=== PATIENT | male | born 1980 | race Caucasian/White ===

== ENCOUNTER 2019-07-21 10:53 | Emergency (ER) | payer SELFPAY ==
[2019-07-21 10:54] VITALS: BP 164/104; PULSE 84; RESP 16; TEMP 36.6; O2SAT 99; BMI 22.4
--- NOTE | 2019-07-21 11:18 | ED_ITS ---
Entered by Cynthia Kumar, acting as scribe for Radha Farrell Mika HPI - Male Genitourinary General: Chief complaint: Urogenital-Male Stated complaint: blood in urine Time Seen by Provider: 07/21/19 11:18 Source: patient, family and RN notes reviewed Mode of arrival: ambulatory Limitations: no limitations History of Present Illness: HPI Narrative: 38 yo male presents to ED with complaints of R sided abdominal pain. He said it began a couple of days ago with R testicular pain. The pain began radiating to the R flank and began in the R side abdomen today. He said he has hematuria. He denies fever, nausea and vomiting. He states he has had no previous surgeries. MD Complaint: testicle pain, testicle swelling and other (hematuria) Onset (ago): day(s) (2) Duration: constant and progressively worsening Location: right testicle, right flank and abdomen (R side) Radiation: right flank and abdomen (R side) Severity: severe Quality: aching, sharp and stabbing Relieving factors: none Exacerbating factors: movement Context: other (unknown) Associated symptoms: Reports hematuria; Deny nausea or vomiting Related Data: Sexually active: Yes Review of Systems General: Reports: other (negative unless marked) Const: Denies: fever, chills, body aches, fatigue, malaise or diaphoresis Eyes: Denies: change in vision or blurry vision ENMT: Denies: throat pain, painful swallowing, hoarseness, ear pain, ear discharge, Change in hearing or nasal discharge Card: Denies: chest pain, palpitations, irregular heart rhythm, syncope, pre- syncope, shortness of breath on exertion or shortness of breath when lying down Resp: Denies: shortness of breath, productive cough, non-productive cough, wheezing, coughing up blood or chest congestion GI: Denies: nausea, vomiting, vomiting blood, coffee grounds in vomit, diarrhea, constipation, cramping, blood in stool or black tarry stool : Reports: blood in urine Musc: Denies: neck pain, back pain, extremity pain, extremity swelling, joint pain, joint swelling, joint warmth or joint stiffness Skin/Breast: Denies: rash, skin tenderness or yellow skin Neuro: Denies: headache, numbness in extremities, weakness in extremities, changes in sensation, lack of coordination, difficulty walking, dizziness, vertigo or confusion Endo: Denies: excessive thirst, tired all the time, cold intolerance, excessive sweating, flushing or hot flashes Draien/Lymph: Denies: easy bruising, easy bleeding, petechiae or enlarged lymph nodes All/Imm: Denies: hives, throat swelling, tongue swelling, facial swelling or acute wheezing PFSH ED PFSH: Social History Smoking and tobacco status: current every day smoker Physical Exam Const: COMMON NORMALS: no apparent distress, oriented x3, no limitations, healthy appearing and well nourished EXAM LIMITATIONS: no altered mental status GENERAL APPEARANCE: cooperative, well kempt and well developed ORIENTATION/CONSCIOUSNESS: Yes awake HENMT: COMMON NORMALS: normocephalic, head/scalp atraumatic, hearing grossly normal bilaterally, external ears normal, EAC's normal, external nose normal and moist oral mucous membranes HEAD & SCALP: normocephalic and atraumatic FACE & SINUS: normal facial exam and face symmetric NOSE: external nose normal EXTERNAL EAR: Yes external ears normal EXTERNAL AUDITORY CANAL: EAC's normal Eye: GENERAL EYE: normal appearance of both eyes Neck/C-Spine: COMMON NORMALS: full ROM, no lymphadenopathy, supple, no meningeal signs and no JVD CERVICAL SPINE: Yes cervical ROM normal Resp: COMMON NORMALS: normal respiratory effort, no retractions, no use of accessory muscles and clear to auscultation bilaterally EFFORT & INSPECTION: Yes able to speak in complete sentences AUSCULTATION: clear to auscultation bilaterally Cardio: COMMON NORMALS: no JVD, regular rate, regular rhythm, S1 normal heart sound, S2 normal heart sound, no gallops, no clicks, no murmurs and no rub JUGULAR VENOUS DISTENTION: no JVD RATE: regular rate RHYTHM: regular rhyth m HEART SOUNDS: S1 normal and S2 normal GI: COMMON NORMALS: soft to palpation, no hepatosplenomegaly and no masses INSPECTION: Yes normal to inspection PALPATION: Yes soft and Yes no hepatosplenomegaly Back/Pelvis: COMMON NORMALS: thoracic and lumbar spine normal to inspection, no thoracic nor lumbar tenderness and thoraco-lumbar ROM normal Extremity: COMMON NORMALS: normal to inspection, full ROM, normal capillary refill, no joint enlargement and no calf tenderness Neuro: COMMON NORMALS: oriented x3, CN's II-XII intact bilaterally and moves all extremities MENINGEAL SIGNS: Yes no meningeal signs Psych: COMMON NORMALS: mental status grossly normal, thought process normal, cooperative, affect normal, speech normal and activity/motor behavior normal APPEARANCE: Yes well kempt SPEECH: Yes normal speech THOUGHT PROCESS: normal thought process Skin: COMMON NORMALS: no rashes or lesions noted, skin turgor normal, no jaundice, no petechiae and no mottling GENERAL SKIN EXAM: no rashes or lesions noted and turgor normal Course Vital Signs: Vital signs: Vital Signs Temperature 97.9 F 07/21/19 10:54 Pulse Rate 84 07/21/19 10:54 Respiratory Rate 18 07/21/19 11:33 Blood Pressure 164/104 07/21/19 10:54 Pulse Oximetry 99 07/21/19 10:54 MDM - Male MDM Narrative: Medical decision making narrative: Patient presents with testicle pain and an ultrasound consistent with epididymitis. We will go ahead and place him on Levaquin. He was empirically treated for STDs here. He agrees to return should his symptoms change or worsen. Lab Data: Attestation: I reviewed the patient's lab results. Labs: Lab Results 07/21/19 07/21/19 07/21/19 Range/Units 11:27 11:27 11:27 WBC 13.1 H (4.0-10.0) 10^3/ uL RBC 4.68 (4.1-5.3) 10^6/u L Hgb 15.6 (11.7-16.6) g/dL Hct 46.4 (42.0-52.0) % MCV 99.1 H (80-94) fL MCH 33.3 (28.0-34.0) pg MCHC 33.6 (30.0-36.0) g/dL RDW 12.1 (12.1-15.1) % Plt Count 249 (130-400) 10^3/c mm MPV 10.2 (7.4-10.4) fL Neut % (Auto) 71.1 % Lymph % (Auto) 18.2 % Park % (Auto) 9.3 % Eos % (Auto) 0.7 % Baso % (Auto) 0.3 % Neut # (Auto) 9.3 H (1.8-7.7) 10^3/u L Lymph # (Auto) 2.4 (0.8-4.8) 10^3/u L Park # (Auto) 1.2 H (0.2-0.9) 10^3/u L Eos # (Auto) 0.1 (0.0-0.8) 10^3/u L Baso # (Auto) 0.0 (0.0-0.1) 10^3/u L Nucleated RBC % (a uto) 0 % Nucleated RBCs # 0.0 /100WBC PT 13.00 (10.5-13.3) SECO NDS INR 0.98 (0.8-1.2) Sodium 135 L (136-145) mmol/L Potassium 4.3 (3.5-5.1) mmol/L Chloride 97 L (98-107) mmol/L Carbon Dioxide 27 (22-29) mmol/L Anion Gap 15.3 (5-19) BUN 9 (6-20) mg/dL Creatinine 0.8 (0.7-1.2) mg/dL GFR Calculation 108.8 (90-130) mL/min Glucose 119 H (65-115) mg/dL Calculated Osmolal ity 277 L (285-295) mOsm/k g Calcium 9.7 (8.5-10.5) mg/dL Total Bilirubin 0.6 (0.15-1.2) mg/dL AST 13 (0-40) U/L ALT 7 (0-41) U/L Alkaline Phosphata se 77 (40-130) IU/L Total Protein 7.2 (6.6-8.7) g/dL Albumin 4.2 (3.5-5.2) g/dL Globulin 3.0 (1.3-4.6) g/dL Urine Color (Yellow) Urine Appearance (CLEAR) Urine pH (5-7) Ur Specific Gravit y (1.005-1.030) Urine Protein (Negative) Urine Glucose (UA) (Normal) Urine Ketones (Negative) Urine Blood (Negative) Urine Nitrate (Negative) Urine Bilirubin (NEGATIVE) Urine Urobilinogen (Negative) mg/dL Ur Leukocyte Dionne ase (Negative) Urine RBC (0-2) /hpf Urine WBC (0-5) /hpf Ur Squamous Epith Cells (0-5) Urine Bacteria (NONE) 03/24/20 Range/Units 11:27 WBC (4.0-10.0) 10^3/ uL RBC (4.1-5.3) 10^6/u L Hgb (11.7-16.6) g/dL Hct (42.0-52.0) % MCV (80-94) fL MCH (28.0-34.0) pg MCHC (30.0-36.0) g/dL RDW (12.1-15.1) % Plt Count (130-400) 10^3/c mm MPV (7.4-10.4) fL Neut % (Auto) % Lymph % (Auto) % Park % (Auto) % Eos % (Auto) % Baso % (Auto) % Neut # (Auto) (1.8-7.7) 10^3/u L Lymph # (Auto) (0.8-4.8) 10^3/u L Park # (Auto) (0.2-0.9) 10^3/u L Eos # (Auto) (0.0-0.8) 10^3/u L Baso # (Auto) (0.0-0.1) 10^3/u L Nucleated RBC % (a uto) % Nucleated RBCs # /100WBC PT (10.5-13.3) SECO NDS INR (0.8-1.2) Sodium (136-145) mmol/L Potassium (3.5-5.1) mmol/L Chloride (98-107) mmol/L Carbon Dioxide (22-29) mmol/L Anion Gap (5-19) BUN (6-20) mg/dL Creatinine (0.7-1.2) mg/dL GFR Calculation (90-130) mL/min Glucose (65-115) mg/dL Calculated Osmolal ity (285-295) mOsm/k g Calcium (8.5-10.5) mg/dL Total Bilirubin (0.15-1.2) mg/dL AST (0-40) U/L ALT (0-41) U/L Alkaline Phosphata se (40-130) IU/L Total Protein (6.6-8.7) g/dL Albumin (3.5-5.2) g/dL Globulin (1.3-4.6) g/dL Urine Color Yellow (Yellow) Urine Appearance Clear (CLEAR) Urine pH 5.0 (5-7) Ur Specific Gravit y 1.015 (1.005-1.030) Urine Protein Neg (Negative) Urine Glucose (UA) Norm (Normal) Urine Ketones Negative (Negative) Urine Blood Neg (Negative) Urine Nitrate Negative (Negative) Urine Bilirubin Neg (NEGATIVE) Urine Urobilinogen Norm (Negative) mg/dL Ur Leukocyte Dionne ase 1+ H (Negative) Urine RBC None (0-2) /hpf Urine WBC 40-55 H (0-5) /hpf Ur Squamous Epith Cells 0-4 H (0-5) Urine Bacteria 2+ H (NONE) Imaging Data: US: Radiologist's impression: [address] [address] Ultrasound Report Signed Patient: Harjeet Crowe JR Unit #: [id number] : 1980 Age/Sex: 38 / M ADM Date: 07/21/19 Loc: ER Room/Bed: Attending Dr: Ordering Provider/Ordering MD: Radha Farrell DO Date of Service: 07/21/19 Procedure(s): US scrotum [id number] Accession Number(s): [id number] Report Number: [id number] WS: [id number] Scrotal and testicular ultrasound, 07/21/2019 Clinical Data: RT. SIDED PAIN Comparison: None. Findings: The right testes measures 3.4 cm x 2.6 cm x 2.5 cm. Right epididymis shows increased flow and increased size consistent with epididymitis The left testes measures 3.4 cm x 2.1 cm x 2.2 cm. The left epididymis measures 1.26 cm and shows no increased flow or evidence of epididymitis. There is normal bilateral blood flow to the testes with no evidence of orchitis or torsion. No masses or abnormal calcifications are noted. US/US scrotum [id number] Impression: Right epididymitis. Dictated By: Maryam Viera MD Signed By: Maryam Viera MD Signed Date/Time: 07/21/19 1205 DD/ 1156 CT Abd/Pel: Radiologist's impression: [facility] [address] [place] [address] CT Scan Report Signed Patient: Harjeet Crowe JR Unit #: [id number] : 1980 Age/Sex: 38 / M ADM Date: 07/21/19 Loc: ER Room/Bed: Attending Dr: Ordering Provider/Ordering MD: Radha Farrell DO Date of Service: 07/21/19 Procedure(s): CT kidney stone [id number] Accession Number(s): [id number] Report Number: [id number] WS: [id number] CT ABDOMEN PELVIS TECHNIQUE: Noncontrast CT of the abdomen and pelvis with coronal and sagittal reformatted images. CLINICAL INFORMATION: Flank/Abdominal Pain COMPARISON: None. DLP: 546.[address] scans at [facility] use at least one of these dose optimization techniques: automated exposure control; mA and/or kV adjustment per patient size (includes targeted exams where dose is matched to clinical indication); or iterative reconstruction. FINDINGS: Noncontrast liver is normal. Normal gallbladder. Noncontrast spleen is normal. Normal GE junction. Lung bases are well aerated. Adrenal glands are normal. No obstructing ureteral calculi. No hydronephrosis. No evidence of acute appendicitis. Normal caliber abdominal aorta. No abdominal lymphadenopathy. Fecal retention in the transverse colon. No evidence of small or large bowel obstruction. No pelvic or inguinal lymphadenopathy. Prostate calcification. Disc space narrowing L5-S1. Notified Radha Farrell at 07/21/2019 12:[address]/CT kidney stone [id number] IMPRESSION: 1. No obstructing renal or ureteral calculi. No hydronephrosis. 2. Appendix is not visualized but no evidence of acute appendicitis. 3. No evidence of small or large bowel obstruction. Mild constipation transverse colon. 4. Normal caliber abdominal aorta. Dictated By: Dinesh Lee MD Signed By: Dinesh Lee MD Signed Date/Time: 07/21/19 1221 DD/ 1214 Discharge Plan Discharge Patient Disposition: Home, Self-Care Clinical Impression: Epididymitis Condition: Stable Prescriptions: New Levaquin 750 mg tablet 750 mg PO DAILY 14 Days RF: 0 [place] 5-325 mg tablet 1 tab PO Q8H PRN (Reason: pain) Qty: 14 RF: 0 Zofran 4 mg tablet 4 mg PO Q8H PRN (Reason: nausea and vomiting) 4 Days RF: 0 Discharge Orders: Discharge Order (Routine); Ordered 07/21/19 Ordered By: Radha Farrell Referrals: Huy Duvall MD [Physician] - 1-3 days Discharge Diet: Advance as tolerated Discharge Activity: Increase activity as tolerated Patient Instructions: Epididymitis (ED) Activity Restrictions/Additional Instructions: Please return to the ER immediately for any of the signs or symptoms listed on your discharge instruction sheets, worsening/changing of your symptoms, you are not getting better as quickly as expected, or for ANY other cause or concerns. Coding Level of Care Code ED Claim Processor for Chg Fwd Exam Comprehensive The documentation recorded by the José paul Valerie R, accurately reflects the service I personally performed and the decisions made by , Radha Farrell
--- NOTE | 2019-07-21 11:22 | US_ITS ---
WS: [id number] Scrotal and testicular ultrasound, 07/21/2019 Clinical Data: RT. SIDED PAIN Comparison: None. Findings: The right testes measures 3.4 cm x 2.6 cm x 2.5 cm. Right epididymis shows increased flow and increased size consistent with epididymitis The left testes measures 3.4 cm x 2.1 cm x 2.2 cm. The left epididymis measures 1.26 cm and shows no increased flow or evidence of epididymitis. There is normal bilateral blood flow to the testes with no evidence of orchitis or torsion. No masses or abnormal calcifications are noted. US/ scrotum [id number] Impression: Right epididymitis.
--- NOTE | 2019-07-21 11:23 | CT_ITS ---
WS: [id number] CT ABDOMEN PELVIS TECHNIQUE: Noncontrast CT of the abdomen and pelvis with coronal and sagittal reformatted images. CLINICAL INFORMATION: Flank/Abdominal Pain COMPARISON: None. DLP: 546.[address] scans at [facility] use at least one of these dose optimization techniques: automat ed exposure control; mA and/or kV adjustment per patient size (includes targeted exams where dose is matched to clinical indication); or iterative reconstruction. FINDINGS: Noncontrast liver is normal. Normal gallbladder. Noncontrast spleen is normal. Normal GE junction. Rosa ng bases are well aerated. Adrenal glands are normal. No obstructing ureteral calculi. No hydronephrosis. No evidence of acute a ppendicitis. Normal caliber abdominal aorta. No abdominal lymphadenopathy. Fecal retention in the transverse colon. No evidence of small or large bowel obstruction. No pelvic o r inguinal lymphadenopathy. Prostate calcification. Disc space narrowing L5-S1. Notified Radha Farrell at 07/21/2019 12:[address]/CT kidney stone [id number] IMPRESSION: 1. No obstructing renal or ureteral calculi. No hydronephrosis. 2. Appendix is not visualized but no evidence of acute appendicitis. 3. No evidence of small or large bowel obstruction. Mild constipation transver se colon. 4. Normal caliber abdominal aorta.
[2019-07-21] MEDS: sodium chloride 0.9% 1,000 ML 100 ML IV (11:31)
[2019-07-21] MEDS: ondansetron 2 mg/ML SDV 2 mL 4 MG IVP (11:32)
[2019-07-21 11:33] VITALS: RESP 18
[2019-07-21] MEDS: morphine 4 mg/mL SDV 1 mL IVP (11:33)
[2019-07-21 11:57] LABS: Bilirubin Urine Neg (NEGATIVE); Blood Urine Neg (Negative); Glucose Urine UA Norm (Normal); Ketones Urine Negative (Negative); Leukocyte Esterase Urine 1+ (Negative); Nitrate Urine Negative (Negative); Protein Urine Neg (Negative); Specific Gravity, Urine 1.015 (1.005-1.030); Urine Appearance Clear (CLEAR); Urine Color Yellow (Yellow); Urobilinogen Urine Norm (Negative)
[2019-07-21 12:06] LABS: Basophils % 0.3 %; Eosinophils # 0.1 10^3/uL (0.0-0.8); Eosinophils % 0.7 %; Hematocrit 46.4 % (42.0-52.0); Hemoglobin 15.6 g/dL (11.7-16.6); Lymphocytes # 2.4 10^3/uL (0.8-4.8); Lymphocytes % 18.2 %; Mean Corpuscular HGB Conc 33.6 g/dL (30.0-36.0); Mean Corpuscular Hemoglobin 33.3 pg (28.0-34.0); Mean Corpuscular Volume 99.1 fL (80-94); Mean Platelet Volume 10.2 fL (7.4-10.4); Monocytes # 1.2 10^3/uL (0.2-0.9); Monocytes % 9.3 %; Neutrophils # 9.3 10^3/uL (1.8-7.7); Neutrophils % 71.1 %; Nucleated Red Blood Cells % 0 %; Platelet Count 249 10^3/cmm (130-400); Red Blood Count 4.68 10^6/uL (4.1-5.3); Red Cell Distribution Width 12.1 % (12.1-15.1); White Blood Count 13.1 10^3/uL (4.0-10.0)
[2019-07-21] MEDS: azithromycin 250 mg Tablet 1000 MG PO (12:07)
[2019-07-21] MEDS: cefTRIAXone 1,000 MG in sodium chloride 0.9% (plus) 50 ML 100 MG IV (12:08)
[2019-07-21 12:21] LABS: Squamous Epithelial Cell Urine 0-4 (0-5); WBC Urine 40-55 /hpf (0-5)
[2019-07-21 12:22] LABS: Add Urine Culture? Yes; Bacteria Urine 2+
[2019-07-21 12:25] LABS: Alanine Aminotransferase 7 U/L (0-41); Albumin Level 4.2 g/dL (3.5-5.2); Alkaline Phosphatase 77 IU/L (40-130); Anion Gap 15.3 (5-19); Aspartate Amino Transferase 13 U/L (0-40); Blood Urea Nitrogen 9 mg/dL (6-20); Calcium 9.7 mg/dL (8.5-10.5); Carbon Dioxide 27 mmol/L (22-29); Chloride 97 mmol/L (98-107); Glomerular Filtration Rate 108.8 mL/min (90-130); Glucose 119 mg/dL (65-115); Osmolality Calculated 277 mOsm/kg (285-295); Potassium 4.3 mmol/L (3.5-5.1); Sodium 135 mmol/L (136-145); Total Bilirubin 0.6 mg/dL (0.15-1.2); Total Protein 7.2 g/dL (6.6-8.7)
[2019-07-21 12:28] LABS: INR 0.98 (0.8-1.2)
[2019-07-21] MEDS: levoFLOXacin 750 mg Tablet PO (12:40)
[2019-07-21 12:46] VITALS: BP 151/106; PULSE 80; O2SAT 95
== END 2019-07-21 12:46 | disposition home or self-care (01) ==
LOC: ER 12:50
PROVIDERS: Emergency Provider Emergency Medicine
DX: N45.1 Epididymitis (principal); F17.200 Nicotine dependence, unspecified, uncomplicated
CPT/HCPCS: 12345; 36415; 74176; 76870; 80053; 81001; 85025; 85610; 87077; 87086; 87186; 87491; 87591; 96360; 96365; 96375; 99283; 99284; J0696; J2270; J2405; J7030; Q0144

== ENCOUNTER 2019-10-24 21:15 | Emergency (ER) | payer SELFPAY ==
[2019-10-24 21:26] VITALS: BP 138/93; PULSE 94; RESP 16; TEMP 36.9; O2SAT 95; BMI 21.2
--- NOTE | 2019-10-24 22:31 | PC.NURSE ---
went to waiting room to call pt back and he could not be found.
== END 2019-10-24 22:35 ==
LOC: ER 21:36
PROVIDERS: Emergency Provider Nurse Practitioner Family
DX: Z53.21 Procedure and treatment not carried out due to patient leaving prior to being seen by health care provider (principal)
CPT/HCPCS: 99281

== ENCOUNTER 2019-10-25 01:32 | Emergency (ER) | payer SELFPAY ==
[2019-10-25 01:42] VITALS: BP 128/86; PULSE 96; RESP 16; TEMP 36.8; O2SAT 96; BMI 22.4
--- NOTE | 2019-10-25 02:02 | XRR_ITS ---
PROCEDURE INFORMATION: Exam: XR Left Hand Exam date and time: 10/25/2019 2:03 AM Age: 39 years old Clinical indication: Injury or trauma; Injury history: PT punched wall; Initial encounter; Blunt trauma (contusions or hematomas; Hand; Left; Additional info: Possible FX TECHNIQUE: Imaging protocol: XR Left hand. Views: 3 or more views. COMPARISON: No relevant prior studies available. FINDINGS: Bones/joints: There is an oblique mildly comminuted dorsally displaced fracture dislocation of the 4th metacarpal of the left hand. An adjacent dorsal dislocation of the 5th metacarpal is seen as well. Soft tissues: Normal. XR/XR hand LT min 3V* [id number] IMPRESSION: 1. Acute comminuted fracture dorsal carpometacarpal dislocation of the 4th metacarpal of the left hand . 2. Acute dorsal dislocation of the 5th carpometacarpal joint
[2019-10-25 04:18] VITALS: RESP 18; O2SAT 98
[2019-10-25] MEDS: fentaNYL 50 mcg/mL INJ 2mL 200 MCG IVP (04:18)
[2019-10-25] MEDS: ondansetron 2 mg/ML SDV 2 mL 4 MG IVP (04:18)
[2019-10-25] MEDS: lidocaine 1% INJ 20 mL INJECTION (04:19)
[2019-10-25 04:43] VITALS: BP 159/109; PULSE 92; RESP 18; O2SAT 96
--- NOTE | 2019-10-25 04:45 | XRR_ITS ---
PROCEDURE INFORMATION: Exam: XR Left Hand Exam date and time: 10/25/2019 4:45 AM Age: 39 years old Clinical indication: Injury or trauma; Injury history: Post reduction; Initial encounter; Blunt trauma (contusions or hematomas; Hand; Left; Additional info: Post reduc TECHNIQUE: Imaging protocol: XR Left hand. Views: 1 or 2 views. COMPARISON: CR (UP EXM, ) 10/25/2019 2:21 AM FINDINGS: Bones/joints: Status post closed reduction of a dorsal dislocation and comminuted fracture at the base of the 4th metacarpal of the left hand. There is residual dorsal dislocation . There is continued dorsal dislocation of the 5th carpometacarpal joint. Soft tissues: Normal. XR/XR hand LT 2V [id number] IMPRESSION: There is closed reduction of a comminuted fracture at the base of the 4th metacarpal of the left hand. There is residual dorsal dislocation of the 4th and 5th carpometacarpal joints.
--- NOTE | 2019-10-25 05:14 | W.ED.EXTPRO ---
HPI - Extremity Problem General: Chief complaint: Extremity Injury, Upper Stated complaint: left hand injury Time Seen by Provider: 10/25/19 03:24 History of Present Illness: HPI Narrative: 39-year-old male who punched a wall. MD Complaint: extremity pain Onset (ago): hour(s) Pain Consistency: constant Location: left, upper extremity and other (hand) Quality: stabbing and constant Radiation: none Relieving factors: nothing Exacerbating factors: nothing Associated symptoms: Reports no associated symptoms; Deny chest pain, fever(s) or rash Review of Systems Const: Denies: fever(s) or chills Card: Denies: chest pain, palpitations or swelling of feet/ankles Resp: Denies: dyspnea or wheezing GI: Denies: nausea or vomiting : Denies: difficulty urinating Musc: Denies: neck pain Skin/Breast: Denies: rash Neuro: Denies: headache(s), dizziness or vertigo Psych: Denies: anxiety PFSH ED PFSH: Social History Smoking and tobacco status: current every day smoker Physical Exam Const: COMMON NORMALS: no acute distress, patient oriented x3 and alert GENERAL APPEARANCE: cooperative HENMT: COMMON NORMALS: normocephalic HEAD & SCALP: normocephalic Chest: COMMONS NORMALS: normal inspection of the chest CHEST: Yes Symmetrical chest wall rise Resp: COMMON NORMALS: normal respiratory effort and No use of accessory muscles Extremity: NARRATIVE EXTREMITY EXAM: Examination of the left hand reveals tenderness and swelling to the dorsum of the ulnar sided CMC's. There is deformity dorsally as well. Does not appear to be rotational deformity. Neuro: COMMON NORMALS: patient oriented x3 SENSORIUM/ORIENTATION: Yes alert Procedures Orthopedic Fracture Reduction Fracture #1: Side: left Fracture Reduction Location: metacarpal Analgesia: procedural sedation (Fentanyl 200 mcg IV) and hematoma block Technique: direct manipulation and traction/counter-traction Post Reduction X-rays Demonstrate: other (Improvement in fracture alignment. Dorsal dislocation of the fourth and fifth CMC's remain) Post-reduction neuro exam: intact Post-reduction vascular exam: intact Splint Applied: Yes Patient Tolerated Procedure: well Course Vital Signs: Vital signs: Vital Signs Temperature 98.2 F 10/25/19 01:42 Pulse Rate 85 10/25/19 05:45 Respiratory Rate 18 10/25/19 05:45 Blood Pressure 151/106 10/25/19 05:45 Pulse Oximetry 96 10/25/19 05:45 MDM - Extremity (Nontraumatic) MDM Narrative: Medical decision making narrative: 39-year-old male with a dorsally displaced/dislocated fourth metacarpal base fracture. There is dislocation of the fifth CMC. Attempt at reduction was made. There is improved alignment in the fracture of the base of the fourth, but continued dislocation of the fourth and fifth bases. This is despite significant pressure and traction during the attempted reduction. The patient will most likely need reduction in the OR as an outpatient. Referral is been placed to orthopedic surgery to see him as an outpatient for this. Spoke with Dr. Ma regarding this case. He states he would be comfortable doing the outpatient reduction, but he is going off call at the beginning of the week. If the orthopedic surgeon on is not comfortable, he will need urgent hand surgery referral. Discharge Plan Discharge Patient Disposition: Home, Self-Care Clinical Impression: Fracture of hand Qualifiers: Encounter type: initial encounter Fracture type: closed Laterality: left Qualified Code(s): S62.92XA - Unspecified fracture of left wrist and hand, initial encounter for closed fracture Carpometacarpal joint dislocation Qualifiers: Encounter type: initial encounter Laterality: left Qualified Code(s): S63.055A - Dislocation of other carpometacarpal joint of left hand, initial encounter Condition: Stable Prescriptions: New Ray 7.5-325 mg tablet 1 tab PO Q6H PRN (Reason: pain) Qty: 20 RF: 0 No Action Ray 5-325 mg tablet 1 tab PO Q8H PRN (Reason: pain) Qty: 14 RF: 0 Discharge Orders: Discharge Order (Routine); Ordered 10/25/19 Ordered By: Elmer Moon Discharge Diet: Usual diet Discharge Activity: Limit activity as instructed Patient Instructions: Hand Fracture (ED) Activity Restrictions/Additional Instructions: A referral is been placed for orthopedics for you. Stay in splint until seen by them. If you do not get a call by Saturday, call the ER case maker at [phone]. Return for excruciating pain despite treatment, loss of sensation, other concerning symptoms. Ice frequently Discharge Date/Time: 10/25/19 05:47 Coding Level of Care Code ED Strike Out Machine Operator for Chg Fwd Exam Expanded Problem Focused
[2019-10-25 05:45] VITALS: BP 151/106; PULSE 85; RESP 18; O2SAT 96
--- NOTE | 2019-10-26 12:43 | DCPLANNER ---
patient registration manager had message to schedule a follow up appointment for patient with ortho. patient registration manager called the ortho clinic, spoke with Pat, gave clinic patients information. Pat from ortho called medical case manager back and stated that after patients information was reviewed, patient will need to follow up with a hand specialist. patient registration manager called patient and asked patient which clinic patient would like to be referred to. Patient stated that he would like to be referred to the [facility], medical case manager faxed patients information to the clinic, will call for appointment information.
--- NOTE | 2019-10-28 12:22 | DCPLANNER ---
fitness and wellness manager called [facility], to confirm if an appointment had been scheduled. fitness and wellness manager was told that the patients information is being reviewed with the physicians.
--- NOTE | 2019-10-29 12:12 | DCPLANNER ---
Patient had a follow up appointment for patient with Ryan Matt on 10.27.19, patient did attend the appointment.
== END 2019-10-25 05:47 | disposition home or self-care (01) ==
PROVIDERS: Emergency Provider Emergency Medicine
DX: S62.315A Displaced fracture of base of fourth metacarpal bone, left hand, initial encounter for closed fracture (principal); S62.317A Displaced fracture of base of fifth metacarpal bone, left hand, initial encounter for closed fracture; S63.055A Dislocation of other carpometacarpal joint of left hand, initial encounter; W22.09XA Striking against other stationary object, initial encounter; F17.210 Nicotine dependence, cigarettes, uncomplicated
CPT/HCPCS: 12345; 26605; 73120; 73130; 96374; 96375; 99282; 99284; J2001; J2405; J3010; J3490

== ENCOUNTER 2019-12-13 16:19 | Emergency (ER) | payer SELFPAY ==
[2019-12-13 16:23] VITALS: BP 137/106; PULSE 100; RESP 16; TEMP 36.7; O2SAT 96; BMI 23.1
--- NOTE | 2019-12-13 16:24 | W.ED.UPPEXIN ---
HPI - Extremity Injury (Upper) General: Chief Complaint: Extremity Injury, Upper Stated Complaint: hand/arm pain post surgery Time Seen by Provider: 12/13/19 16:21 History of Present Illness: HPI narrative: 39-year-old male comes in complaining of left hand pain began over the last 24 hours he has had a hand fracture back on October 23. He was seen the following day and sent to [facility] he underwent hand surgery open reduction internal fixation is multiple Ary wires in place is complaining of the being able to palpate 1 is concerned may be poking out. He says had increased pain as well. MD complaint: injury to: left Onset (ago): week(s) Other Extremity Injury: Left: hand Handedness: right Relieving factors: none Exacerbating factors: none Context: direct blow Associated symptoms: Reports no associated symptoms Treatments prior to arrival: bandage Review of Systems Const: Denies: fever(s), chills, body aches, change in appetite, fatigue or malaise Card: Denies: chest pain, edema, dyspnea on exertion or orthopnea Resp: Denies: dyspnea, productive cough or non-productive cough PFSH ED PFSH: Surgical History Hx of hand surgery Social History Smoking and tobacco status: current every day smoker Physical Exam Const: COMMON NORMALS: no acute distress GENERAL APPEARANCE: cooperative and comfortable ORIENTATION/CONSCIOUSNESS: Yes awake, Yes oriented to person, Yes oriented to place and Yes oriented to time HENMT: COMMON NORMALS: normocephalic, atraumatic and hearing grossly normal bilaterally HEAD & SCALP: normocephalic and atraumatic Neck/C-Spine: COMMON NORMALS: no JVD Lymph: LYMPHATIC: no lymphadenopathy noted and no lymphedema noted Resp: COMMON NORMALS: normal respiratory effort, No retractions, No use of accessory muscles and clear to auscultation bilaterally AUSCULTATION: clear to auscultation bilaterally Cardio: COMMON NORMALS: no JVD, regular rate, regular rhythm and No murmurs present (Cardio) RATE: regular rate RHYTHM: regular rhythm Extremity: NARRATIVE EXTREMITY EXAM: Palpable wire and through the lateral aspect of the dorsum of the left hand. There is no evidence of tenting of the skin however. Wound incision itself is well-healed there is some mild localized erythema no induration. There is no epitrochlear lymph nodes no significant swelling of the hand. Neuro: SENSORIUM/ORIENTATION: Yes oriented to person, Yes oriented to place and Yes oriented to time Course Vital Signs: Vital signs: Vital Signs Temperature 98.1 F 12/13/19 16:23 Pulse Rate 70 12/13/19 18:22 Respiratory Rate 14 12/13/19 18:22 Blood Pressure 142/100 12/13/19 18:22 Pulse Oximetry 98 12/13/19 18:22 MDM - Extremity Injury (Upper) MDM Narrative: Medical decision making narrative: Does not appear necessarily it is significantly infected will cover him with Bactrim and some topical antibiotic. Will also have him follow-up with his hand surgeon as planned. Refilled his hydrocodone for short course until he gets back to his surgeon if he has worsening problems return. Lab Data: Labs: Lab Results 12/13/19 12/13/19 Range/Units 17:07 17:07 WBC 7.4 (4.0-10.0) 10^3/ uL RBC 4.69 (4.1-5.3) 10^6/u L Hgb 16.0 (11.7-16.6) g/dL Hct 47.1 (42.0-52.0) % MCV 100.4 H (80-94) fL MCH 34.1 H (28.0-34.0) pg MCHC 34.0 (30.0-36.0) g/dL RDW 12.2 (12.1-15.1) % Plt Count 253 (130-400) 10^3/c mm MPV 9.4 (7.4-10.4) fL Neut % (Auto) 45.3 % Lymph % (Auto) 40.5 % Haakon % (Auto) 10.7 % Eos % (Auto) 2.7 % Baso % (Auto) 0.7 % Neut # (Auto) 3.34 (1.8-7.7) 10^3/u L Lymph # (Auto) 3.0 (0.8-4.8) 10^3/u L Haakon # (Auto) 0.8 (0.2-0.9) 10^3/u L Eos # (Auto) 0.2 (0.0-0.8) 10^3/u L Baso # (Auto) 0.1 (0.0-0.1) 10^3/u L Nucleated RBC % (a uto) 0 % Nucleated RBCs # 0.0 /100WBC C-Reactive Protein 0.8 (0.0-4.9) mg/L Discharge Plan Discharge Patient Disposition: Home Clinical Impression: Hand pain, left Condition: Stable Prescriptions: New hydrocodone-acetaminophen 5-325 mg tablet 1 tab PO Q6H PRN (Reason: pain) Qty: 10 RF: 0 mupirocin 2 % ointment 1 applic TOPICAL BID Qty: 15 RF: 0 Bactrim DS 800-160 mg tablet 1 tab PO DAILY 5 Days RF: 0 No Action [place] 5-325 mg tablet 1 tab PO Q8H PRN (Reason: pain) Qty: 14 RF: 0 [place] 7.5-325 mg tablet 1 tab PO Q6H PRN (Reason: pain) Qty: 20 RF: 0 Discharge Orders: Discharge Order (Routine); Ordered 12/13/19 Ordered By: Ben Chowdary Discharge Diet: Usual diet Discharge Activity: Limit activity as instructed Activity Restrictions/Additional Instructions: Follow-up with your hand surgeon as previously scheduled Discharge Date/Time: 12/13/19 18:23 Coding Level of Care Code ED Calendar Control Clerk [employer] for Mikeg Fwd Exam Detailed
--- NOTE | 2019-12-13 16:33 | XR_ITS ---
WS: [id number] EXAM: LEFT HAND: 3 VIEWS DATE OF EXAMINATION: 12/13/2019, 1645 hours COMPARISON: Left hand examination from 10/25/2019. HISTORY: Patient is 39 years old with postop left hand fracture fixation. FINDINGS: Since the earlier examination there has been interval placement of Ary wires traversing the fra ctured fourth metacarpal base as well as across the fifth metacarpal base into the carpal bones. Over all alignment is reduced. Soft tissue swelling over the dorsal hand and wrist considered typical post surgical response. No hardware complication. XR/XR hand LT min 3V* [id number] IMPRESSION: Postsurgical changes for internal fixation of fractures at the carpometacarpal articulations as described. No hardware complication or bony malalignment.
[2019-12-13 17:13] LABS: Basophils # 0.1 10^3/uL (0.0-0.1); Basophils % 0.7 %; Eosinophils # 0.2 10^3/uL (0.0-0.8); Eosinophils % 2.7 %; Hematocrit 47.1 % (42.0-52.0); Lymphocytes % 40.5 %; Mean Corpuscular Hemoglobin 34.1 pg (28.0-34.0); Mean Corpuscular Volume 100.4 fL (80-94); Mean Platelet Volume 9.4 fL (7.4-10.4); Monocytes # 0.8 10^3/uL (0.2-0.9); Monocytes % 10.7 %; Neutrophils # 3.34 10^3/uL (1.8-7.7); Neutrophils % 45.3 %; Nucleated Red Blood Cells % 0 %; Platelet Count 253 10^3/cmm (130-400); Red Blood Count 4.69 10^6/uL (4.1-5.3); Red Cell Distribution Width 12.2 % (12.1-15.1); White Blood Count 7.4 10^3/uL (4.0-10.0)
[2019-12-13 17:31] LABS: C Reactive Protein 0.8 mg/L (0.0-4.9)
[2019-12-13 18:22] VITALS: BP 142/100; PULSE 70; RESP 14; O2SAT 98
== END 2019-12-13 18:23 | disposition home or self-care (01) ==
PROVIDERS: Emergency Provider Family Medicine
DX: M79.642 Pain in left hand (principal); F17.210 Nicotine dependence, cigarettes, uncomplicated
CPT/HCPCS: 12345; 36415; 73130; 85025; 86140; 99281; 99283

== ENCOUNTER 2019-12-24 09:21 | Emergency (ER) | payer SELFPAY ==
[2019-12-24 09:22] VITALS: BP 166/101; PULSE 71; RESP 16; TEMP 36.7; O2SAT 98; BMI 22.4
--- NOTE | 2019-12-24 09:40 | ED_ITS ---
HPI - Extremity Problem General: Chief complaint: Extremity Injury, Upper Stated complaint: l hand injury Time Seen by Provider: 12/24/19 09:22 History of Present Illness: HPI Narrative: Patient comes in complain about left hand pain unable to keep his appointment with Ortho scheduled and also that he said he has a little bit of redness and would like some more pain medicine and worried about infection. MD Complaint: extremity pain Onset (ago): day(s) Pain Consistency: constant Location: left and upper extremity Quality: aching Relieving factors: nothing Exacerbating factors: range of motion Associated symptoms: Reports no associated symptoms; Deny chest pain, fever(s) or rash Review of Systems Const: Denies: fever(s), chills or body aches Eyes: Denies: change in vision or blurry vision ENMT: Denies: throat pain or nasal congestion Card: Denies: chest pain or dyspnea on exertion Resp: Denies: dyspnea, productive cough or non-productive cough GI: Denies: abdominal pain, nausea or vomiting : Denies: difficulty urinating Musc: Reports: extremity pain Skin/Breast: Reports: skin tenderness; Denies: rash Neuro: Denies: headache(s) Psych: Denies: anxiety or depression [place]/Lymph: Denies: easy bruising PFSH ED PFSH: Surgical History Hx of hand surgery Social History Smoking and tobacco status: current every day smoker Physical Exam Const: COMMON NORMALS: no acute distress, average body habitus and patient oriented x3 HENMT: COMMON NORMALS: normocephalic HEAD & SCALP: normal to inspection and normocephalic FACE & SINUS: normal facial exam Eye: COMMON NORMALS: conjunctivae normal GENERAL EYE: appearance normal, both eyes and all related structures CONJUNCTIVA: Yes conjunctivae normal Neck/C-Spine: COMMON NORMALS: no JVD Chest: COMMONS NORMALS: normal inspection of the chest Resp: COMMON NORMALS: normal respiratory effort and clear to auscultation bilaterally AUSCULTATION: clear to auscultation bilaterally Cardio: COMMON NORMALS: no JVD, regular rate and regular rhythm RATE: regular rate RHYTHM: regular rhythm GI: COMMON NORMALS: Normal to inspection, nondistended, normoactive bowel sounds present Extremity: COMMON NORMALS: normal to inspection and full ROM LEFT UPPER EXTREMITY: Yes hand & digits (Left hand has slight redness around the pin sites on the dorsal aspect medial slight tenderness no drainage worried about pins come through skin I do not see any pins coming to the skin at all and then he just has his tenderness that has had since he is fractured it. Distal neurovascular intact) Neuro: COMMON NORMALS: patient oriented x3 Course Vital Signs: Vital signs: Vital Signs Temperature 98.1 F 12/24/19 09:22 Pulse Rate 71 12/24/19 09:22 Respiratory Rate 16 12/24/19 09:22 Blood Pressure 166/101 12/24/19 09:22 Pulse Oximetry 98 12/24/19 09:22 MDM - Extremity (Nontraumatic) MDM Narrative: Medical decision making narrative: Differentials include cellulitis possible infection misalignment of the pins penetrating through the skin ongoing pain patient to contact hand surgeon's office and discussed with him patient aware and commits this plan Discharge Plan Discharge Patient Disposition: Home Clinical Impression: Fracture of hand Qualifiers: Encounter type: subsequent encounter Fracture type: closed Laterality: left Fracture healing: with delayed healing Qualified Code(s): S62.92XG - Unspecified fracture of left wrist and hand, subsequent encounter for fracture with delayed healing Condition: Stable Prescriptions: New Bactrim DS 800-160 mg tablet 1 tab PO BID 7 Days Qty: 14 RF: 0 tramadol 50 mg tablet 50 mg PO Q8H PRN (Reason: pain) Qty: 14 RF: 0 No Action [place] 5-325 mg tablet 1 tab PO Q8H PRN (Reason: pain) Qty: 14 RF: 0 [place] 7.5-325 mg tablet 1 tab PO Q6H PRN (Reason: pain) Qty: 20 RF: 0 hydrocodone-acetaminophen 5-325 mg tablet 1 tab PO Q6H PRN (Reason: pain) Qty: 10 RF: 0 mupirocin 2 % ointment 1 applic TOPICAL BID Qty: 15 RF: 0 Discharge Orders: Discharge Order (Routine); Ordered 12/24/19 Ordered By: Tereso Bruce Discharge Diet: Usual diet Discharge Activity: Increase activity as tolerated Activity Restrictions/Additional Instructions: Follow-up your hand surgeon in [place] concerning difficulties keep appointment you have on December 29. If you need to be seen sooner contact your hand surgeon's office and see if they can see you sooner. Take medicine as prescribed. Coding Level of Care Code ED Internet Technology Manager for rBendan Garcia
== END 2019-12-24 09:40 | disposition home or self-care (01) ==
LOC: ER 09:45
PROVIDERS: Emergency Provider Nurse Practitioner Family
DX: M79.642 Pain in left hand (principal); S62.92XA Unspecified fracture of left hand, initial encounter for closed fracture; X58.XXXA Exposure to other specified factors, initial encounter; F17.210 Nicotine dependence, cigarettes, uncomplicated
CPT/HCPCS: 12345; 99281

== ENCOUNTER 2020-02-21 09:05 | Emergency (ER) | payer SELFPAY ==
--- NOTE | 2020-02-21 09:06 | XRR_ITS ---
PROCEDURE INFORMATION: Exam: XR Left Wrist Exam date and time: 02/21/2020 9:12 AM Age: 39 years old Clinical indication: Pain; Prior surgery; Surgery date: 1-6 months; Surgery type: Left wrist fracture; Additional info: Injury TECHNIQUE: Imaging protocol: XR Left wrist. Views: 3 or more views. COMPARISON: No relevant prior studies available. FINDINGS: Bones/joints: The patient has undergone orthopedic surgery. A metal pin extends across the joint between the capitate and hamate bone. Three metal pins extend through the base of the 4th metacarpal bone. An oblique fracture through the base of the 4th medical or pole bone appears in satisfactory position. No other fractures are seen. Soft tissues: Normal. XR/XR wrist LT min 3V* [id number] IMPRESSION: Satisfactory appearance after orthopedic surgery. The fracture at the base of the 4th metacarpal bone appears in satisfactory position.
[2020-02-21 09:08] VITALS: BP 157/99; PULSE 86; RESP 16; TEMP 36.4; O2SAT 100; BMI 23.7
--- NOTE | 2020-02-21 09:13 | ED_ITS ---
HPI - Extremity Problem General: Chief complaint: Extremity Problem,Nontraumatic Stated complaint: left wrist pain Time Seen by Provider: 02/21/20 09:10 History of Present Illness: HPI Narrative: Patient is a 39-year-old male who comes to the ED with left wrist pain. Patient was seen here on 10/24 originally for left wrist injury and he had a fracture of the base of fourth and fifth metacarpal with dislocation. Patient was then sent to hand surgeon and surgery was performed with wires and rods placed in October. Patient was supposed to follow-up appointment with hand surgeon to get hardware removed from left wrist but he has not gone to appointment. He was seen here the on 12/23 for same complaint and told that he needs to follow-up with hand surgeon. Today patient says he is having increased pain due to hardware in left wrist. He denies any injury or trauma to left wrist to cause increasing pain. Patient says he has spoke with hand surgeon and they want him to come to the clinic, but patient says he has no way of getting to [place] so he has not went. Associated symptoms: Deny chest pain, fever(s) or rash Review of Systems Const: Denies: fever(s), chills or fatigue Eyes: Denies: change in vision or eye discomfort ENMT: Denies: throat pain, odynophagia, nasal discharge or nasal congestion Card: Denies: chest pain, palpitations, edema, swelling of feet/ankles, dyspnea on exertion or orthopnea Resp: Denies: dyspnea, productive cough or non-productive cough GI: Denies: abdominal pain, nausea, vomiting, diarrhea, constipation or hematochezia : Denies: flank pain, difficulty urinating, dysuria or hematuria Musc: Reports: extremity pain (left wrist pain); Denies: neck pain, back pain or extremity swelling Skin/Breast: Denies: rash or new lesions Neuro: Denies: headache(s), numbness in extremities or weakness in extremities PFS ED PFSH: Surgical History Hx of hand surgery Social History Smoking and tobacco status: current every day smoker Physical Exam Const: COMMON NORMALS: patient oriented x3 and alert GENERAL APPEARANCE: cooperative and comfortable HENMT: COMMON NORMALS: normocephalic HEAD & SCALP: normocephalic MOUTH: Normal oral and palatal mucosa present THROAT: posterior oropharynx normal and uvula midline Neck/C-Spine: COMMON NORMALS: supple GENERAL: Yes normal visual inspection Resp: COMMON NORMALS: normal respiratory effort, No retractions, No use of accessory muscles and clear to auscultation bilaterally AUSCULTATION: clear to auscultation bilaterally Cardio: COMMON NORMALS: regular rate, regular rhythm, S1 normal heart sound present, S2 normal heart sound present, No gallops present (Cardio), No clicks present (Cardio), No murmurs present (Cardio) and Peripheral pulses 2+ throughout RATE: regular rate RHYTHM: regular rhythm HEART SOUNDS: S1 normal heart sound present and S2 normal heart sound present PERIPHERAL PULSES: Peripheral pulses 2+ throughout GI: COMMON NORMALS: Normal to inspection, nondistended, normoactive bowel sounds present, Soft to palpation, non-tender and no masses PALPATION: Yes Soft to palpation : COMMON NORMALS: Yes no CVA tenderness BLADDER/KIDNEY EXAM: Yes no CVA tenderness Back/Pelvis: COMMON NORMALS: no CVA tenderness Extremity: NARRATIVE EXTREMITY EXAM: Left hand and wrist?patient has tenderness in this hand and wrist. Neuro: COMMON NORMALS: patient oriented x3 and moves all extremities SENSORIUM/ORIENTATION: Yes alert Skin: GENERAL SKIN EXAM: dry skin Course Reevaluation(s): Reevaluation #1: I gave patient contact information for [employer] transport here in [place] and told him to contact them to get a ride set up to the [place]. Told him patient needs to go up to [place] on Saturday to be evaluated by his hand surgeon at [facility]. Vital Signs: Vital signs: Vital Signs Temperature 98.9 F 02/21/20 09:53 Pulse Rate 88 02/21/20 09:53 Respiratory Rate 20 H 02/21/20 09:53 Blood Pressure 157/99 02/21/20 09:53 Pulse Oximetry 99 02/21/20 09:53 MDM - Extremity (Nontraumatic) MDM Narrative: Medical decision making narrative: Patient is a 39-year-old male comes in the ED with left wrist pain. Patient was seen here for same complaint multiple times. He had surgery on left hand to to fix fourth and fifth metacarpal fractures. He was supposed to return to hand surgeon about 2 months ago to be reevaluated and get pins removed. He says he is having trouble getting a ride to get to the hand surgeon in [place]. I stressed with patient the importance of getting to hand surgeon in [place] to be evaluated. I provided patient with [employer] transportation phone number and told him to give them a call and have him go see his hand surgeon early this week. Patient understood and agreed with plan. Imaging Data^: Xray Ortho: Attestation: I personally reviewed and interpreted this imaging study as follows: My impression: Left wrist x-ray?no acute new fractures. Pins placed in the hand have shifted and are working their way out. Pending final radiology report. Discharge Plan Discharge Patient Disposition: Home Clinical Impression: Hand fracture, left Qualifiers: Encounter type: sequela Fracture type: closed Qualified Code(s): S62.92XS - Unspecified fracture of left wrist and hand, sequela Condition: Stable Prescriptions: No Action ibuprofen 200 mg Tablet 800 mg PO PRN RF: 0 Discharge Orders: Discharge Order (Routine); Ordered 02/21/20 Ordered By: Roel Yanes Discharge Diet: Regular Discharge Activity: Limit activity as instructed Patient Instructions: Hand Fracture (ED) Activity Restrictions/Additional Instructions: Follow-up with medical provider as directed. Call transportation company today to set up an appointment to have them drive you out to hand surgeon in [place] within the next day or 2. It is important that you see the hand surgeon to get problem addressed. Limit use of left wrist and hand until seen by hand surgeon. Return to the ER or your medical provider if condition worsens. Please read and understand discharge instructions. If any questions, please ask. Discharge Date/Time: 02/21/20 09:56 Coding Level of Care Code ED High School Admissions Representative for Brendan Fwd Exam Comprehensive
[2020-02-21 09:20] VITALS: BP 157/99; PULSE 92; RESP 16; O2SAT 100
--- NOTE | 2020-02-21 09:22 | PC.NURSE ---
XR performed at bedside
[2020-02-21] MEDS: HYDROcodone-acetaminophen 7.5-325 mg Tablet 1 TAB PO (09:23)
--- NOTE | 2020-02-21 09:33 | PC.NURSE ---
Sitting on side of bed, at bedside. No acute distress.
[2020-02-21 09:53] VITALS: BP 157/99; PULSE 88; RESP 20; TEMP 37.2; O2SAT 99
[2020-02-21] MEDS: HYDROcodone-acetaminophen 5-325 mg Tablet 2 TAB PO (09:55)
== END 2020-02-21 09:56 | disposition home or self-care (01) ==
PROVIDERS: Emergency Provider Physician Assistant
DX: S62.305S Unspecified fracture of fourth metacarpal bone, left hand, sequela (principal); S62.307S Unspecified fracture of fifth metacarpal bone, left hand, sequela; X58.XXXS Exposure to other specified factors, sequela; F17.210 Nicotine dependence, cigarettes, uncomplicated
CPT/HCPCS: 12345; 73110; 99282; 99283

== ENCOUNTER 2020-02-22 12:40 | Emergency (ER) | payer SELFPAY ==
[2020-02-22 12:46] VITALS: BP 166/113; PULSE 81; RESP 14; TEMP 36.7; O2SAT 99; BMI 23.1
--- NOTE | 2020-02-22 12:53 | ED_ITS ---
HPI - Extremity Problem General: Chief complaint: Extremity Problem,Nontraumatic Stated complaint: Left Wrist Time Seen by Provider: 02/22/20 12:53 History of Present Illness: HPI Narrative: Patient is a 39-year-old male comes to the ED with left wrist pain. Patient was seen here yesterday 02/20 for same complaint. He denies any reinjury of the left wrist and says that he contacted his hand surgeon in [place] at [facility] and they will see him on N ovember 10. Patient rates pain a 9 out of 10. Associated symptoms: Deny chest pain, fever(s) or rash Review of Systems Const: Denies: fever(s), chills or fatigue Eyes: Denies: change in vision or eye discomfort ENMT: Denies: throat pain, odynophagia, nasal discharge or nasal congestion Card: Denies: chest pain, palpitations, edema, swelling of feet/ankles, dyspnea on exertion or orthopnea Resp: Denies: dyspnea, productive cough or non-productive cough GI: Denies: abdominal pain, nausea, vomiting, diarrhea, constipation or hematochezia : Denies: flank pain, difficulty urinating, dysuria or hematuria Musc: Reports: extremity pain (left hand pain); Denies: neck pain, back pain or extremity swelling Skin/Breast: Denies: rash or new lesions Neuro: Denies: headache(s), numbness in extremities or weakness in extremities PFS ED PFSH: Surgical History Hx of hand surgery Social History Smoking and tobacco status: current every day smoker Physical Exam Const: COMMON NORMALS: patient oriented x3 and alert GENERAL APPEARANCE: cooperative and comfortable HENMT: COMMON NORMALS: normocephalic HEAD & SCALP: normocephalic MOUTH: Normal oral and palatal mucosa present THROAT: posterior oropharynx normal and uvula midline Neck/C-Spine: COMMON NORMALS: supple GENERAL: Yes normal visual inspection Resp: COMMON NORMALS: normal respiratory effort, No retractions, No use of accessory muscles and clear to auscultation bilaterally AUSCULTATION: clear to auscultation bilaterally Cardio: COMMON NORMALS: regular rate, regular rhythm, S1 normal heart sound present, S2 normal heart sound present, No gallops present (Cardio), No clicks present (Cardio), No murmurs present (Cardio) and Peripheral pulses 2+ throughout RATE: regular rate RHYTHM: regular rhythm HEART SOUNDS: S1 normal heart sound present and S2 normal heart sound present PERIPHERAL PULSES: Peripheral pulses 2+ throughout GI: COMMON NORMALS: Normal to inspection, nondistended, normoactive bowel sounds present, Soft to palpation, non-tender and no masses PALPATION: Yes Soft to palpation : COMMON NORMALS: Yes no CVA tenderness BLADDER/KIDNEY EXAM: Yes no CVA tenderness Back/Pelvis: COMMON NORMALS: no CVA tenderness Extremity: NARRATIVE EXTREMITY EXAM: Left hand and wrist?patient has tenderness in this hand and wrist. Pain from wrist is unable to push through skin on hand and has some surrounding erythema. No warmth or purulent drainage. Neuro: COMMON NORMALS: patient oriented x3 SENSORIUM/ORIENTATION: Yes alert Skin: GENERAL SKIN EXAM: dry skin Course Vital Signs: Vital signs: Vital Signs Temperature 98.0 F 02/22/20 12:46 Pulse Rate 81 02/22/20 12:46 Respiratory Rate 14 02/22/20 12:46 Blood Pressure 166/113 02/22/20 12:46 Pulse Oximetry 99 02/22/20 12:46 MDM - Extremity (Nontraumatic) MDM Narrative: Medical decision making narrative: Patient is a 39-year-old male comes to the ED with left hand pain. He was seen here in the ED yesterday 02/20 for same complaint. Patient says he has an appointment scheduled now with his hand surgeon in [place] to get left hand reevaluated and possible surgery to remove pins on . I stressed with patient to make sure he goes to that appointment to get left hand pain addressed. I sent him with a prescription for ibuprofen 800 mg and cephalexin for possible developing cellulitis on the left hand as well where pin is breaking through skin. I stressed with patient the importance of going to the Hand Surgeon in [place] to get left hand reevaluated. Patient understood agree with plan. Discharge Plan Discharge Patient Disposition: Home Clinical Impression: Hand fracture, left Qualifiers: Encounter type: sequela Fracture type: closed Qualified Code(s): S62.92XS - Unspecified fracture of left wrist and hand, sequela Condition: Stable Prescriptions: New ibuprofen 800 mg tablet 800 mg PO Q8H PRN (Reason: pain) Qty: 30 RF: 0 cephalexin 500 mg capsule 500 mg PO BID 7 Days Qty: 14 RF: 0 No Action ibuprofen 200 mg Tablet 800 mg PO PRN RF: 0 Discharge Orders: Discharge Order (Routine); Ordered 02/22/20 Ordered By: Roel Yanes Discharge Diet: Regular Discharge Activity: Increase activity as tolerated Activity Restrictions/Additional Instructions: Follow-up with hand surgeon at your scheduled appointment on March 08. Take medications as prescribed. Return to the ER or your medical provider if condition worsens. Please read and understand discharge instructions. If any questions, please ask. Discharge Date/Time: 02/22/20 13:13 Coding Level of Care Code ED Deicer Repairer Electric for Brendan Fwmoises Exam Detailed
[2020-02-22] MEDS: HYDROcodone-acetaminophen 7.5-325 mg Tablet 1 TAB PO (13:08)
== END 2020-02-22 13:13 | disposition home or self-care (01) ==
PROVIDERS: Emergency Provider Physician Assistant
DX: S62.92XS Unspecified fracture of left hand, sequela (principal); F17.210 Nicotine dependence, cigarettes, uncomplicated; X58.XXXS Exposure to other specified factors, sequela
CPT/HCPCS: 12345; 99281; 99283

== ENCOUNTER 2020-08-27 21:11 | Inpatient (IN) | payer MEDICAID, SELFPAY ==
[2020-08-27 21:15] VITALS: BP 149/101; PULSE 102; RESP 18; TEMP 36.7; O2SAT 100; BMI 21.2
--- NOTE | 2020-08-27 21:43 | ED_ITS ---
Documented by User: AILIN Marrero 08/28/20 00:19 HPI - Male Genitourinary General: Chief complaint: Urogenital-Male Stated complaint: TESTICULAR SWELLING Time Seen by Provider: 08/27/20 21:23 Source: patient Mode of arrival: ambulatory Limitations: no limitations History of Present Illness: HPI Narrative: Patient is a 40-year-old male who presents to ED today with a complaint of severe testicular pain. Patient tells me 4 days ago while he was moving furniture he felt a very sharp pain to his testicles and has had pain since. He states yesterday pain became severe. He has noticed swelling and redness mainly to the left side. Patient is still able to urinate. He denies abdominal pain although does feel like his pain radiates upward into his left lower abdomen. No rash/lesions. No penile discharge. Patient is sexually active and monogamous with his significant other/. MD Complaint: testicle pain and testicle swelling Onset (ago): day(s) Duration: constant Location: left testicle Radiation: left inguinal region and abdomen Severity: severe Severity scale (1-10): 10 Relieving factors: none Exacerbating factors: none Context: lifting Associated symptoms: Reports no associated symptoms and nausea; Deny dysuria, hematuria or vomiting Review of Systems Const: Denies: fever(s), chills, body aches, fatigue or malaise Card: Denies: chest pain Resp: Denies: dyspnea GI: Reports: nausea; Denies: abdominal pain, vomiting or diarrhea : Reports: genital pain, testicular pain and scrotal swelling; Denies: flank pain, difficulty urinating, dysuria, urinary frequency, urinary urgency, urinary hesitancy, hematuria, genital lesions or penile discharge Musc: Denies: back pain Skin/Breast: Denies: rash PFSH ED PFSH: Surgical History Hx of hand surgery Social History Smoking and tobacco status: current every day smoker Physical Exam Const: COMMON NORMALS: average body habitus, patient oriented x3, no limitations, healthy appearing, alert and well nourished GENERAL APPEARANCE: cooperative and in distress (appears very uncomfortable ) HENMT: COMMON NORMALS: normocephalic and atraumatic HEAD & SCALP: normocephalic and atraumatic GI: COMMON NORMALS: Normal to inspection, nondistended, normoactive bowel sounds present, Soft to palpation, non-tender, No hepatosplenomegaly present and no masses INSPECTION: Yes normal to inspection PALPATION: Yes Soft to palpation and Yes No hepatosplenomegaly present : PENIS: normal penis MEATUS: meatus normal SCROTUM: No inguinal hernia, Yes Scrotal tenderness present, Yes erythematous, Yes edematous and Yes scrotal swelling TESTES: Yes epididymal induration and Yes epididymal tenderness (severe swelling to L ) Neuro: COMMON NORMALS: patient oriented x3 SENSORIUM/ORIENTATION: Yes alert Course Vital Signs: Vital signs: Vital Signs Temperature 98.2 F 08/28/20 03:26 Pulse Rate 98 08/28/20 03:26 Respiratory Rate 16 08/28/20 03:26 Blood Pressure 134/92 08/28/20 03:26 Pulse Oximetry 97 08/28/20 03:26 MDM - Male MDM Narrative: Medical decision making narrative: Patient clinically has a severe left sided epididymitis. He is mildly tachycardic. He has a white count of almost 27,000. He has required multiple doses of IV pain medications to control his discomfort. At this time I think patient would benefit from admission. Dr. Moon evaluated patient and agrees. He has spoken to Dr. Duvall who will admit. I have started him on IV Rocephin and Doxycycline. Lab Data: Labs: Lab Results 08/27/20 08/27/20 08/27/20 Range/Units 20:30 22:08 22:08 WBC 26.9 H (4.0-10.0) 10^3/ uL RBC 3.87 L (4.1-5.3) 10^6/u L Hgb 13.0 (11.7-16.6) g/dL Hct 38.1 L (42.0-52.0) % MCV 98.4 H (80-94) fL MCH 33.6 (28.0-34.0) pg MCHC 34.1 (30.0-36.0) g/dL RDW 13.2 (12.1-15.1) % Plt Count 279 (130-400) 10^3/c mm MPV 9.8 (7.4-10.4) fL Neut % (Auto) 86.2 % Lymph % (Auto) 7.5 % [place] % (Auto) 5.2 % Eos % (Auto) 0.1 % Baso % (Auto) 0.3 % Neut # (Auto) 23.18 H (1.8-7.7) 10^3/u L Lymph # (Auto) 2.0 (0.8-4.8) 10^3/u L [place] # (Auto) 1.4 H (0.2-0.9) 10^3/u L Eos # (Auto) 0.0 (0.0-0.8) 10^3/u L Baso # (Auto) 0.1 (0.0-0.1) 10^3/u L Nucleated RBC % (a uto) 0 % Nucleated RBCs # 0.0 /100WBC Sodium 129 L (136-145) mmol/L Potassium 3.5 (3.5-5.1) mmol/L Chloride 93 L (98-107) mmol/L Carbon Dioxide 25 (22-29) mmol/L Anion Gap 14.5 (5-19) BUN 8 (6-20) mg/dL Creatinine 0.7 (0.7-1.2) mg/dL GFR Calculation 125.5 (90-130) mL/min Glucose 107 (65-115) mg/dL Calculated Osmolal ity 267 L (285-295) mOsm/k g Lactic Acid (0.5-2.2) mmol/L Calcium 8.3 L (8.5-10.5) mg/dL Total Bilirubin 0.4 (0.15-1.2) mg/dL AST 14 (0-40) U/L ALT 15 (0-41) U/L Alkaline Phosphata se 67 (40-130) IU/L Total Protein 6.5 L (6.6-8.7) g/dL Albumin 3.7 (3.5-5.2) g/dL Globulin 2.8 (1.3-4.6) g/dL Urine Color Yellow (Yellow) Urine Appearance Clear (CLEAR) Urine pH 5 (5-7) Ur Specific Gravit y 1.010 (1.005-1.030) Urine Protein Neg (Negative) Urine Glucose (UA) Norm (Normal) Urine Ketones 1+ H (Negative) Urine Blood Neg (Negative) Urine Nitrate Negative (Negative) Urine Bilirubin Neg (Negative) Urine Urobilinogen Norm (Negative) mg/dL Ur Leukocyte Dionne ase Negative (Negative) 08/27/20 Range/Units 22:30 WBC (4.0-10.0) 10^3/ uL RBC (4.1-5.3) 10^6/u L Hgb (11.7-16.6) g/dL Hct (42.0-52.0) % MCV (80-94) fL MCH (28.0-34.0) pg MCHC (30.0-36.0) g/dL RDW (12.1-15.1) % Plt Count (130-400) 10^3/c mm MPV (7.4-10.4) fL Neut % (Auto) % Lymph % (Auto) % [place] % (Auto) % Eos % (Auto) % Baso % (Auto) % Neut # (Auto) (1.8-7.7) 10^3/u L Lymph # (Auto) (0.8-4.8) 10^3/u L [place] # (Auto) (0.2-0.9) 10^3/u L Eos # (Auto) (0.0-0.8) 10^3/u L Baso # (Auto) (0.0-0.1) 10^3/u L Nucleated RBC % (a uto) % Nucleated RBCs # /100WBC Sodium (136-145) mmol/L Potassium (3.5-5.1) mmol/L Chloride (98-107) mmol/L Carbon Dioxide (22-29) mmol/L Anion Gap (5-19) BUN (6-20) mg/dL Creatinine (0.7-1.2) mg/dL GFR Calculation (90-130) mL/min Glucose (65-115) mg/dL Calculated Osmolal ity (285-295) mOsm/k g Lactic Acid 0.9 (0.5-2.2) mmol/L Calcium (8.5-10.5) mg/dL Total Bilirubin (0.15-1.2) mg/dL AST (0-40) U/L ALT (0-41) U/L Alkaline Phosphata se (40-130) IU/L Total Protein (6.6-8.7) g/dL Albumin (3.5-5.2) g/dL Globulin (1.3-4.6) g/dL Urine Color (Yellow) Urine Appearance (CLEAR) Urine pH (5-7) Ur Specific Gravit y (1.005-1.030) Urine Protein (Negative) Urine Glucose (UA) (Normal) Urine Ketones (Negative) Urine Blood (Negative) Urine Nitrate (Negative) Urine Bilirubin (Negative) Urine Urobilinogen (Negative) mg/dL Ur Leukocyte Dionne ase (Negative) Imaging Data: US scrotum : Radiologist's impression: [address] [id number] ReportSigned Patient: Harjeet Crowe #: [id number]: 1980Acct#:[id number]/Sex: 40 / MADM Date: 08/27/20Loc: ERRoom/Bed:Attending Dr: Ordering Provider/Ordering MD: Ирина Rodriguez Date of Service: 08/27/20 Procedure(s): US scrotum [id number] Accession Number(s): [id number] Report Number: [id number] PROCEDURE INFORMATION: Exam: US Scrotum Exam date and time: 08/27/2020 10:29 PM Age: 40 years old Clinical indication: Scrotum pain; Additional info: Severe L testicular pain/swelling/redness TECHNIQUE: Imaging protocol: Real-time ultrasound of the scrotum and contents with color Doppler and image documentation. COMPARISON: US scrotum [id number] 07/21/2019 11:43 AM FINDINGS: Right testicle: The right testis measures 3.8 x 1.8 x 2.0 cm. Vascular flow is demonstrated within the right testis with color Doppler and duplex waveform sonography. PSV 7.3 cm/s, RI 0.31. Left testicle: The left testis measures 4.2 x 2.4 x 2.9 cm. Vascular flow is demonstrated within the left testis with color Doppler and duplex waveform sonography. PSV 8.7 cm/s, RI 0.76. Anechoic material is seen surrounding the left testis containing some webbing. Epididymides: The right epididymal head is prominent measuring 1.1 cm craniocaudal dimension. The there are small anechoic cystic mass seen within the epididymis compatible with epididymal cysts or spermatoceles. Mildly increased vascularity seen within the right epididymis raising some suspicion for epididymitis The left epididymis is prominent measuring 2.4 cm craniocaudal dimension. There is hypervascularity seen within the left epididymis on color Doppler imaging compatible with epididymitis. Scrotum: Small varicoceles are seen on the left. US/US scrotum [id number] IMPRESSION: 1. There are findings compatible with left epididymitis. There may be a mild increase in vascular flow within the right epididymis and only a mild increase in size of the right epididymal head. Mild right epididymitis cannot be entirely excluded. 2. There is a small mildly complex hydrocele on the left. This is likely associated with inflammatory changes within the epididymis. 3. Varicoceles are seen on the left. Dictated By:Adrien Garcia MDSigned By:Adrien Garcia MDSigned Date/Time:08/27/202245 Discharge Plan Discharge Patient Disposition: Admitted As Inpatient Admit Provider: Huy Duvall Clinical Impression: Epididymitis, left Condition: Stable Coding Level of Care Code ED Control Specialist for Chg Fwd Exam Expanded Problem Focused Documented by User: Elmer Moon DO 08/28/20 06:52 HPI - Male Genitourinary General: Chief complaint: Urogenital-Male Stated complaint: TESTICULAR SWELLING Time Seen by Provider: 08/27/20 21:23 PFSH ED PFSH: Surgical History Hx of hand surgery Social History Smoking and tobacco status: current every day smoker Course Consultations: Consultation #1: Eloina Vital Signs: Vital signs: Vital Signs Temperature 98.2 F 05/02/21 03:26 Pulse Rate 98 08/28/20 03:26 Respiratory Rate 16 08/28/20 03:26 Blood Pressure 134/92 08/28/20 03:26 Pulse Oximetry 97 08/28/20 03:26 MDM - Male MDM Narrative: Medical decision making narrative: 40-year-old male originally seen by Mrs. Rodriguez?FRANCO Marinelli. I have seen the patient as well. I agree with her history, evaluation, work-up, and treatment. This patient on ultrasound and on clinical exam has severe epididymitis on the left. He has some evidence of right sided epididymitis as well. Pain control has been difficult for him, as obviously his condition is exceptionally painful. He has a white blood cell count of 21.3. His lactic acid is normal. He will be admitted for IV antibiotics, and IV pain control given the amount of pain. Spoke with urology, he will admit the patient. Lab Data: Labs: Lab Results 08/27/20 08/27/20 08/27/20 Range/Units 20:30 22:08 22:08 WBC 26.9 H (4.0-10.0) 10^3/ uL RBC 3.87 L (4.1-5.3) 10^6/u L Hgb 13.0 (11.7-16.6) g/dL Hct 38.1 L (42.0-52.0) % MCV 98.4 H (80-94) fL MCH 33.6 (28.0-34.0) pg MCHC 34.1 (30.0-36.0) g/dL RDW 13.2 (12.1-15.1) % Plt Count 279 (130-400) 10^3/c mm MPV 9.8 (7.4-10.4) fL Neut % (Auto) 86.2 % Lymph % (Auto) 7.5 % [place] % (Auto) 5.2 % Eos % (Auto) 0.1 % Baso % (Auto) 0.3 % Neut # (Auto) 23.18 H (1.8-7.7) 10^3/u L Lymph # (Auto) 2.0 (0.8-4.8) 10^3/u L [place] # (Auto) 1.4 H (0.2-0.9) 10^3/u L Eos # (Auto) 0.0 (0.0-0.8) 10^3/u L Baso # (Auto) 0.1 (0.0-0.1) 10^3/u L Nucleated RBC % (a uto) 0 % Nucleated RBCs # 0.0 /100WBC Sodium 129 L (136-145) mmol/L Potassium 3.5 (3.5-5.1) mmol/L Chloride 93 L (98-107) mmol/L Carbon Dioxide 25 (22-29) mmol/L Anion Gap 14.5 (5-19) BUN 8 (6-20) mg/dL Creatinine 0.7 (0.7-1.2) mg/dL GFR Calculation 125.5 (90-130) mL/min Glucose 107 (65-115) mg/dL Calculated Osmolal ity 267 L (285-295) mOsm/k g Lactic Acid (0.5-2.2) mmol/L Calcium 8.3 L (8.5-10.5) mg/dL Total Bilirubin 0.4 (0.15-1.2) mg/dL AST 14 (0-40) U/L ALT 15 (0-41) U/L Alkaline Phosphata se 67 (40-130) IU/L Total Protein 6.5 L (6.6-8.7) g/dL Albumin 3.7 (3.5-5.2) g/dL Globulin 2.8 (1.3-4.6) g/dL Urine Color Yellow (Yellow) Urine Appearance Clear (CLEAR) Urine pH 5 (5-7) Ur Specific Gravit y 1.010 (1.005-1.030) Urine Protein Neg (Negative) Urine Glucose (UA) Norm (Normal) Urine Ketones 1+ H (Negative) Urine Blood Neg (Negative) Urine Nitrate Negative (Negative) Urine Bilirubin Neg (Negative) Urine Urobilinogen Norm (Negative) mg/dL Ur Leukocyte Dionne ase Negative (Negative) 08/27/20 Range/Units 22:30 WBC (4.0-10.0) 10^3/ uL RBC (4.1-5.3) 10^6/u L Hgb (11.7-16.6) g/dL Hct (42.0-52.0) % MCV (80-94) fL MCH (28.0-34.0) pg MCHC (30.0-36.0) g/dL RDW (12.1-15.1) % Plt Count (130-400) 10^3/c mm MPV (7.4-10.4) fL Neut % (Auto) % Lymph % (Auto) % [place] % (Auto) % Eos % (Auto) % Baso % (Auto) % Neut # (Auto) (1.8-7.7) 10^3/u L Lymph # (Auto) (0.8-4.8) 10^3/u L [place] # (Auto) (0.2-0.9) 10^3/u L Eos # (Auto) (0.0-0.8) 10^3/u L Baso # (Auto) (0.0-0.1) 10^3/u L Nucleated RBC % (a uto) % Nucleated RBCs # /100WBC Sodium (136-145) mmol/L Potassium (3.5-5.1) mmol/L Chloride (98-107) mmol/L Carbon Dioxide (22-29) mmol/L Anion Gap (5-19) BUN (6-20) mg/dL Creatinine (0.7-1.2) mg/dL GFR Calculation (90-130) mL/min Glucose (65-115) mg/dL Calculated Osmolal ity (285-295) mOsm/k g Lactic Acid 0.9 (0.5-2.2) mmol/L Calcium (8.5-10.5) mg/dL Total Bilirubin (0.15-1.2) mg/dL AST (0-40) U/L ALT (0-41) U/L Alkaline Phosphata se (40-130) IU/L Total Protein (6.6-8.7) g/dL Albumin (3.5-5.2) g/dL Globulin (1.3-4.6) g/dL Urine Color (Yellow) Urine Appearance (CLEAR) Urine pH (5-7) Ur Specific Gravit y (1.005-1.030) Urine Protein (Negative) Urine Glucose (UA) (Normal) Urine Ketones (Negative) Urine Blood (Negative) Urine Nitrate (Negative) Urine Bilirubin (Negative) Urine Urobilinogen (Negative) mg/dL Ur Leukocyte Dionne ase (Negative) Discharge Plan Discharge Patient Disposition: Admitted As Inpatient Admit Provider: Huy Duvall Clinical Impression: Epididymitis, left Condition: Stable Coding Level of Care Code ED Control Specialist for Chg Fwd Exam Expanded Problem Focused
[2020-08-27 22:03] VITALS: RESP 16
[2020-08-27] MEDS: ondansetron 2 mg/ML SDV 2 mL 4 MG IVP (22:03)
[2020-08-27] MEDS: morphine 4 mg/mL SDV 1 mL IVP (22:03)
[2020-08-27 22:10] VITALS: BP 145/106; PULSE 102; RESP 18; O2SAT 98
[2020-08-27 22:24] LABS: Basophils # 0.1 10^3/uL (0.0-0.1); Basophils % 0.3 %; Eosinophils % 0.1 %; Hematocrit 38.1 % (42.0-52.0); Lymphocytes % 7.5 %; Mean Corpuscular HGB Conc 34.1 g/dL (30.0-36.0); Mean Corpuscular Hemoglobin 33.6 pg (28.0-34.0); Mean Corpuscular Volume 98.4 fL (80-94); Mean Platelet Volume 9.8 fL (7.4-10.4); Monocytes # 1.4 10^3/uL (0.2-0.9); Monocytes % 5.2 %; Neutrophils # 23.18 10^3/uL (1.8-7.7); Neutrophils % 86.2 %; Nucleated Red Blood Cells % 0 %; Platelet Count 279 10^3/cmm (130-400); Red Blood Count 3.87 10^6/uL (4.1-5.3); Red Cell Distribution Width 13.2 % (12.1-15.1); White Blood Count 26.9 10^3/uL (4.0-10.0)
[2020-08-27 22:48] LABS: Alanine Aminotransferase 15 U/L (0-41); Albumin Level 3.7 g/dL (3.5-5.2); Alkaline Phosphatase 67 IU/L (40-130); Anion Gap 14.5 (5-19); Aspartate Amino Transferase 14 U/L (0-40); Blood Urea Nitrogen 8 mg/dL (6-20); Calcium 8.3 mg/dL (8.5-10.5); Carbon Dioxide 25 mmol/L (22-29); Chloride 93 mmol/L (98-107); Globulin 2.8 g/dL (1.3-4.6); Glomerular Filtration Rate 125.5 mL/min (90-130); Glucose 107 mg/dL (65-115); Osmolality Calculated 267 mOsm/kg (285-295); Potassium 3.5 mmol/L (3.5-5.1); Sodium 129 mmol/L (136-145); Total Bilirubin 0.4 mg/dL (0.15-1.2); Total Protein 6.5 g/dL (6.6-8.7)
[2020-08-27 22:55] LABS: Lactic Sepsis W/Reflex 0.9 mmol/L (0.5-2.2)
[2020-08-27 23:34] VITALS: BP 153/107; RESP 18; O2SAT 99
[2020-08-27 23:59] LABS: Add Urine Microscopic? NO; Charge for UA Resulting for Rev
[2020-08-28] VITALS (15 sets, daily range): BP systolic 120–161; BP diastolic 82–104; PULSE 86–105; RESP 16–18; TEMP 36.7–37.8; O2SAT 96–99
[2020-08-28] MEDS: doxycycline 100 MG in sodium chloride 0.9% (plus) 100 ML IV (00:03)
[2020-08-28] MEDS: morphine 4 mg/mL SDV 1 mL IVP ×3 (00:13→20:03)
[2020-08-28 00:26] LABS: Bilirubin Urine Neg (Negative); Blood Urine Neg (Negative); Glucose Urine UA Norm (Normal); Ketones Urine 1+ (Negative); Leukocyte Esterase Urine Negative (Negative); Nitrate Urine Negative (Negative); Protein Urine Neg (Negative); Urine Appearance Clear (CLEAR); Urine Color Yellow (Yellow); Urobilinogen Urine Norm (Negative); pH Urine 5 (5-7)
[2020-08-28] MEDS: cefTRIAXone 1,000 MG in sodium chloride 0.9% (plus) 50 ML 100 MG IV (01:17)
[2020-08-28] MEDS: HYDROmorphone 1 mg/mL INJ 1 mL IVP (01:45)
[2020-08-28] MEDS: sodium chloride 0.9% 1,000 ML 125 ML IV ×3 (02:34→18:00)
[2020-08-28 06:17] LABS: Basophils # 0.1 10^3/uL (0.0-0.1); Basophils % 0.3 %; Eosinophils # 0.1 10^3/uL (0.0-0.8); Eosinophils % 0.3 %; Hematocrit 38.8 % (42.0-52.0); Hemoglobin 13.1 g/dL (11.7-16.6); Lymphocytes # 1.9 10^3/uL (0.8-4.8); Mean Corpuscular HGB Conc 33.8 g/dL (30.0-36.0); Mean Corpuscular Hemoglobin 33.6 pg (28.0-34.0); Mean Corpuscular Volume 99.5 fL (80-94); Mean Platelet Volume 9.4 fL (7.4-10.4); Monocytes # 1.4 10^3/uL (0.2-0.9); Monocytes % 6.8 %; Neutrophils # 17.43 10^3/uL (1.8-7.7); Nucleated Red Blood Cells % 0 %; Platelet Count 274 10^3/cmm (130-400); Red Cell Distribution Width 13.2 % (12.1-15.1); White Blood Count 21.3 10^3/uL (4.0-10.0)
[2020-08-28 06:40] LABS: Alanine Aminotransferase 11 U/L (0-41); Albumin Level 3.6 g/dL (3.5-5.2); Alkaline Phosphatase 68 IU/L (40-130); Anion Gap 13.7 (5-19); Aspartate Amino Transferase 12 U/L (0-40); Blood Urea Nitrogen 8 mg/dL (6-20); Calcium 8.3 mg/dL (8.5-10.5); Carbon Dioxide 23 mmol/L (22-29); Chloride 100 mmol/L (98-107); Globulin 2.9 g/dL (1.3-4.6); Glucose 103 mg/dL (65-115); Osmolality Calculated 275 mOsm/kg (285-295); Potassium 3.7 mmol/L (3.5-5.1); Sodium 133 mmol/L (136-145); Total Bilirubin 0.4 mg/dL (0.15-1.2); Total Protein 6.5 g/dL (6.6-8.7)
[2020-08-28] MEDS: oxyCODONE-APAP 5-325 mg Tablet 1 TAB PO ×2 (08:10→15:56)
--- NOTE | 2020-08-28 08:28 | P.HP_ITS ---
Providers/Chief Complaint Admitting Physician: Huy Duvall MD Chief Complaint: Severe left epididymitis History of Present Illness Harjeet Crowe JR is a 40 year old male who I evaluated for the first time today after admission to this emergency department last night. He presented with a 4-day history of increasing left hemiscrotal pain with abrupt worsening of symptoms yesterday. Pain was unbearable. Noted at the same time the pain was increasing, a marked increase in swelling redness and tenderness. He has had a history of prior epididymitis several years ago which responded well to antibiotic therapy orally. Work-up: ULTRASOUND: No evidence of abscess. Marked epididymitis on left CBC: White count was 26,000 Lactate: Normal Because of the severity of the infection and symptoms it was decided to admit for IV antibiotics. This morning he is feeling slightly better but still having significant pain. Physical exam shows findings consistent with severe left epididymitis. Because of the persistence of the symptoms and white count still elevated (21,000 this morning) I recommend that he maintain hospitalization for IV antibiotics and symptomatic control. We will reassess in the morning with repeat CBC and physical exam for determination of whether or not he can be managed as an outpatient at that point. Review of Systems Const: Reports: malaise; Denies: fever(s) or chills Eyes: Denies: change in vision or blurry vision ENMT: Denies: throat pain or odynophagia Card: Denies: chest pain or palpitations Resp: Denies: dyspnea, productive cough or wheezing GI: Reports: abdominal pain (Radiating up from the left hemiscrotum); Denies: nausea or vomiting : Reports: genital pain and other (See HPI); Denies: flank pain, urinary frequency or hematuria Musc: Denies: extremity swelling, joint redness or joint warmth Skin/Breast: Reports: other (Heavily tattooed); Denies: rash or changing lesions Neuro: Denies: frequent falls, confusion or difficulty communicating thoughts Psych: Reports: anxiety (Related to the current events); Denies: memory loss Endo: Denies: excessive sweating or flushing [place]/Lymph: Denies: easy bruising, easy bleeding or enlarged lymph nodes All/Imm: Denies: urticaria or throat swelling Medications/Allergies Home Medications Medication Instructions Recorded Confirmed Last Taken Type ibuprofen 800 mg PO PRN 02/21/20 02/21/20 02/20/20 History ibuprofen 800 mg PO Q8H PRN #30 tab 02/22/20 Unknown Rx Allergies Allergy/AdvReac Type Severity Reaction Status Date / Time No Known Allergies Allergy Verified 02/21/20 09:27 PFSH Acute PFSH: Surgical History Hx of hand surgery Social History Smoking and tobacco status: current every day smoker Vitals/I&O/Wt Last Vital Signs Temp 98.2 F 08/28/20 07:33 Pulse 95 08/28/20 07:33 Resp 18 08/28/20 08:10 BP 138/93 08/28/20 07:33 Pulse Ox 98 08/28/20 07:33 08/27/20 08/28/20 08/28/20 22:59 06:59 14:59 Intake Total 150.000 / 150.000 Output Total 0 / 0 475 / 475 Balance 150.000 / 150.000 -475 / -475 Weight last 48 hrs Weight 165 lb Physical Exam Const: COMMON NORMALS: alert and well nourished GENERAL APPEARANCE: cooperative, well kempt, well developed and in distress (Severe scrotal pain); not comfortable ORIENTATION/CONSCIOUSNESS: not confused HENMT: HEAD & SCALP: normocephalic and atraumatic Eye: COMMON NORMALS: conjunctivae normal and no scleral icterus Neck/C-Spine: COMMON NORMALS: full ROM Resp: COMMON NORMALS: normal respiratory effort EFFORT & INSPECTION: No labored and No Actively coughing Cardio: COMMON NORMALS: regular rate and regular rhythm GI: COMMON NORMALS: Normal to inspection, nondistended, normoactive bowel sounds present PALPATION: Yes Tenderness to palpation present (GI) (Left groin, no hernia) : MALE GROIN/PERINEUM EXAM: No ecchymosis and No hernia PENIS: normal penis MEATUS: meatus normal, no meatla discharge and No Blood at meatus present SCROTUM: Yes testes descended bilaterally TESTES: No absent leroy ticle OTHER: Normal right hemiscrotum. Abnormal left hemiscrotum consistent with epididymitis with tight nonfluctuant scrotal contents. Edematous and erythematous hemiscrotal wall. No palpable hernia. Swelling extends proximally along the cord slightly. No evidence of drainage etc. Extremity: COMMON NORMALS: no clubbing, cyanosis or edema Neuro: COMMON NORMALS: no focal motor deficits SENSORIUM/ORIENTATION: Yes alert Psych: COMMON NORMALS: mental status grossly normal APPEARANCE: Yes grossly normal and Yes well kempt ATTITUDE: Yes calm and Yes engaged Skin: GENERAL SKIN EXAM: no rashes or lesions noted Data : 08/28/20 05:57 08/28/20 05:57 Micro: Microbiology 08/27/20 23:00 Blood Culture - Preliminary Blood SPECIMEN COLLECTED 08/27/20 23:14 Blood Culture - Preliminary Blood SPECIMEN COLLECTED A&P Assessment and plan (1) Epididymitis, left: Severe left epididymitis with slight improvement in white count and discomfort but still debilitating pain. We will continue IV Rocephin, changed to oral doxycycline, supportive care with ice pack and scrotal elevation. Continue regular diet. Anticipate discharge when able to manage pain with oral medications and with significant drop in white count. Status: Acute (2) Patient denies medical problems: Has had epididymitis before but denies any other significant medical problems for which he takes medications etc. Status: Acute Attestations Medical Necessity Statement*: Severe left epididymitis requiring IV antibiotics at this time. Parenteral medication required for symptomatic co ntrol. White count markedly elevated although slightly improved today. Coding Level of Care Code Acute Senior Software Project Manager for nicolette Garcia Diagnoses Epididymitis, left N45.1 Patient denies medical problems Z78.9
[2020-08-28] MEDS: doxycycline 100 mg Tablet PO ×2 (09:11→18:00)
[2020-08-29] MEDS: cefTRIAXone 1,000 MG in sodium chloride 0.9% (plus) 50 ML 100 MG IV (01:37)
[2020-08-29 01:39] VITALS: RESP 16
[2020-08-29] MEDS: oxyCODONE-APAP 5-325 mg Tablet 1 TAB PO ×2 (01:39→08:32)
[2020-08-29] MEDS: sodium chloride 0.9% 1,000 ML 125 ML IV (01:39)
[2020-08-29 04:00] VITALS: BP 120/78; PULSE 103; RESP 18; TEMP 37.1; O2SAT 97
[2020-08-29 04:53] LABS: Basophils % 0.4 %; Eosinophils % 0.3 %; Hematocrit 36.3 % (42.0-52.0); Lymphocytes # 1.3 10^3/uL (0.8-4.8); Lymphocytes % 11.6 %; Mean Corpuscular HGB Conc 33.1 g/dL (30.0-36.0); Mean Corpuscular Hemoglobin 33.3 pg (28.0-34.0); Mean Corpuscular Volume 100.8 fL (80-94); Mean Platelet Volume 9.4 fL (7.4-10.4); Monocytes # 0.9 10^3/uL (0.2-0.9); Neutrophils % 79.1 %; Nucleated Red Blood Cells % 0 %; Platelet Count 222 10^3/cmm (130-400); Red Cell Distribution Width 13.1 % (12.1-15.1); White Blood Count 11.1 10^3/uL (4.0-10.0)
--- NOTE | 2020-08-29 07:20 | PM.DCS ---
Discharge Providers Date of Admission: 08/28/20 02:08 Date of Discharge: August 29, 2020 Attending Provider at Admission: Huy Duvall MD Attending Provider at Discharge: Huy Duvall MD Diagnoses at Discharge Discharge Diagnosis (1) Epididymitis, left: Status: Acute (2) Patient denies medical problems: Status: Acute Reason for Visit Reason for Visit: Severe left epididymitis Hospital Course Hospital Course He was admitted through the emergency department with severe uncontrolled pain related to severe left epididymitis. Ultrasound showed no evidence of abscess. He had a white count of 26,000. Was not septic. Placed on IV antibiotics with general improvement but not dramatically so on physical exam. He did note less pain on hospital day #2. White count which was 26,000 on admission, 21,000 on hospital day #1, had decreased to 11,000 by hospital day #2. He remained afebrile. Vital signs were stable. He felt that he could manage at home. Reviewed and consider the above information for this visit restrictions of activity, elevation of the scrotum while down, ice pack, scrotal support etc. The importance of antibiotic therapy orally was emphasized. Plan was to see him back in 3 days in the office but he was provided numbers if he had any concerns or questions to call prior to that time. Also notified how to reach me after hours if there is any problem. Discharged in stable condition. Physical Exam Const: COMMON NORMALS: no acute distress, alert and well nourished GENERAL APPEARANCE: well kempt and well developed ORIENTATION/CONSCIOUSNESS: not confused HENMT: COMMON NORMALS: normocephalic and atraumatic HEAD & SCALP: normocephalic and atraumatic Eye: COMMON NORMALS: no scleral icterus Neck/C-Spine: COMMON NORMALS: full ROM Resp: COMMON NORMALS: normal respiratory effort EFFORT & INSPECTION: No labored and No Actively coughing : COMMON NORMALS: Yes no CVA tenderness BLADDER/KIDNEY EXAM: Yes no CVA tenderness MALE GROIN/PERINEUM EXAM: No ecchymosis PENIS: normal penis MEATUS: meatus normal OTHER: Still with significant left hemiscrotal swelling consistent with epididymitis. No evidence of fluctuance. No drainage. No pointing. Tender but slightly improved. No encroachment of erythema to the surrounding tissue. Back/Pelvis: COMMON NORMALS: no CVA tenderness Extremity: COMMON NORMALS: no clubbing, cyanosis or edema Neuro: COMMON NORMALS: no focal motor deficits SENSORIUM/ORIENTATION: Yes alert Psych: COMMON NORMALS: mental status grossly normal APPEARANCE: Yes grossly normal and Yes well kempt ATTITUDE: Yes calm and Yes engaged Skin: COMMON NORMALS: no rashes or lesions noted and no jaundice GENERAL SKIN EXAM: no rashes or lesions noted Discharge Data Data Completed and Pending: Completed Studies During Hospitalization Category Date Time Status US scrotum [id number] Urgent Ultrasound 08/27/20 21:42 Completed Pending at discharge Category Date Time Status Blood Culture Sta t Lab 08/27/20 23:00 Results Urine Culture Sta t Lab 08/27/20 22:30 Results Labs from last 24 hours 08/29/20 04:32 WBC 11.1 H RBC 3.60 L Hgb 12.0 Hct 36.3 L MCV 100.8 H MCH 33.3 MCHC 33.1 RDW 13.1 Plt Count 222 MPV 9.4 Neut % (Auto) 79.1 Lymph % (Auto) 11.6 [place] % (Auto) 8.0 Eos % (Auto) 0.3 Baso % (Auto) 0.4 Neut # (Auto) 8.80 H Lymph # (Auto) 1.3 [place] # (Auto) 0.9 Eos # (Auto) 0.0 Baso # (Auto) 0.0 Nucleated RBC % (a uto) 0 Nucleated RBCs # 0.0 Vitals: Last Vital Signs Temp 98.7 F 08/29/20 04:00 Pulse 103 H 08/29/20 04:00 Resp 18 08/29/20 04:00 BP 120/78 08/29/20 04:00 Pulse Ox 97 08/29/20 04:00 Discharge Plan Discharge Patient Disposition: Home Condition: Stable Prescriptions: New Percocet 5-325 mg tablet 1 tab PO Q6H Qty: 24 RF: 0 levofloxacin 500 mg tablet 500 mg PO DAILY 1 Days Qty: 10 RF: 0 doxycycline hyclate 100 mg capsule 100 mg PO BID 10 Days Qty: 20 RF: 0 Continued ibuprofen 200 mg Tablet 800 mg PO PRN RF: 0 Tylenol 325 mg Tablet 325 - 650 mg PO Q6H PRN (Reason: Pain) RF: 0 Discharge Orders: Discharge Order (Routine); Ordered 08/29/20 Ordered By: Huy Caro: Huy Duvall MD [Physician] - 09/01/20 (Follow-up on severe left epididymitis) Discharge Diet: Usual diet Discharge Activity: Limit activity as instructed Patient Instructions: Doxycycline (By mouth), Oxycodone/Acetaminophen (By mouth), Levofloxacin (By mouth), Epididymitis (DC), Opioid Safety Activity Restrictions/Additional Instructions: 1. You have a severe infection in the left epididymis which is a structure that sits behind the left testicle. 2. There did not appear to be an abscess on the ultrasound. If one develops it may require surgical drainage. 3. A prescription for pain medication has been sent to [facility]. 2 antibiotics have also been sent. Please fill everything especially the antibiotics to improve your chances of getting over this infection without surgery. 4. I will see you back in 3 days in my office but certainly sooner if you are having increasing symptoms. Please call [phone] if you have any concerns or questions during normal working hours. The hospital side stitching machine operator can reach me after hours if you have any concerns. Discharge Attestations Time Spent in Discharge Care*: less than 30 min Quality Metrics Clinical Quality Measures During this hospital stay, did patient experience: None Coding Level of Care Code Acute Chg FW DC note Exam Comprehensive Diagnoses Epididymitis, left N45.1 Patient denies medical problems Z78.9
[2020-08-29 07:52] VITALS: BP 132/90; PULSE 89; RESP 16; TEMP 36.9; O2SAT 97
[2020-08-29 08:32] VITALS: RESP 18
[2020-08-29] MEDS: doxycycline 100 mg Tablet PO (08:32)
[2020-08-29 08:40] VITALS: BP 132/90; RESP 18; TEMP 36.9
--- NOTE | 2020-08-29 18:56 | PC.RESP ---
SMOKING CESSATION INFORMATION SENT TO PATIENT.
== END 2020-08-29 09:07 | disposition home or self-care (01) | DRG 728 ==
LOC: ER 08-28 00:19 → MEDSURG 08-28 06:51
PROVIDERS: Emergency Medicine; Admitting Provider Urology; Emergency Provider Physician Assistant; Visit Provider Urology
DX: N45.1 Epididymitis (principal); F17.200 Nicotine dependence, unspecified, uncomplicated
CPT/HCPCS: 36415; 76870; 80053; 81003; 83605; 85025; 87040; 87086; 87491; 87591; 96365; 96367; 96375; 96376; 99285; J0696; J1170; J2270; J2405; J3490; J7030

== ENCOUNTER 2020-09-07 08:35 | Outpatient (CLI) | payer MEDICAID, SELFPAY ==
--- NOTE | 2020-09-07 08:38 | US_ITS ---
WS: [id number] TESTICULAR ULTRASOUND HISTORY: EPIDIDYMITIS COMPARISON: None available. TECHNIQUE: Real-time and color Doppler imaging or utilized to perform a testicular ultrasound. Right testicle: 3.4 cm x 2.1 cm x 1.8 cm. Normal size testicle. No increased vascularity or mass. There is mild heterogeneity. Normal color Doppler is present throughout. Systolic and diastolic velocities are both present. No significant hydrocele. There is marked scrotal wall thickening without change. Right epididymis: Marked enlargement and heterogeneity of the epididymis. There is variable echogenic ity within the epididymis and mild increased vascularity is seen on the prior study. The echogenicity is decreasing in portions of the epididymis. Left testicle: 4.0 cm x 2.7 cm x 3.8 cm. Abnormal appearance of the LEFT testicle. There has been a change in the echogenicity since the prior examination. Infiltrating region of decreased echogenicity involving the superior and mid testicle w ith increased vascularity. This area of abnormal echogenicity measures 2.4 x 1.5 x 2.2 cm. Marked increased vascularity throughout the testicle. Minimally complex hydrocele. Left epididymis: Markedly enlarged heterogeneous and hyperemic epididymis. There is been progression of the inflammatory changes. On several images there are multiple small cystic areas surrounding the LEFT testicle which may be complex hydrocele or small areas of abscesses developing surrounding the t esticle. Continued scrotal wall thickening. Diffuse scrotal wall thickening. US/US scrotum [id number] IMPRESSION: 1. Progression of severe LEFT epididymitis since the prior examination. 2. Interval development of a LEFT testicular phlegmon/abscess measuring 2.4 x 1.5 x 2.2 cm. 3. Multiple small cystic areas surrounding the LEFT testicle may be loculated components of a hydrocele and/or tiny microabscesses surrounding the testicle. 4. Continued enlargement and heterogeneity in the RIGHT epididymis and finding s of mild acute epididymitis. 5. Diffuse bilateral scrotal wall cellulitis. Notified Huy Duvall MD at 09/07/2020 9:58 AM. Message left for Dr. Lawrence graham to review report as there has been a significant change since the prior study .
== END 2020-09-07 08:36 | disposition home or self-care (01) ==
LOC: RAD 08:36
PROVIDERS: Visit Provider Urology
DX: N45.1 Epididymitis (principal); N49.2 Inflammatory disorders of scrotum
CPT/HCPCS: 76870; 81003

== ENCOUNTER → 2020-09-15 09:40 | Outpatient (BNVA) | payer MEDICAID, SELFPAY | PROVIDERS: Visit Provider Nurse Practitioner Family | DX: N45.1 Epididymitis (principal); F17.210 Nicotine dependence, cigarettes, uncomplicated | CPT/HCPCS: 81003 ==